=== PATIENT | male | born 1940 | race Caucasian/White ===

== ENCOUNTER 2019-01-23 18:20 | Emergency (ER) | payer MEDICARE, BC ==
[~2019-01-23] VITALS: Ht 167.6 cm; Wt 63.5 kg
[~2019-01-23 18:20] MED LIST: Augmentin 875-1 EACH PO
[2019-01-23 20:15] LABS: BASOPHILS ABSOLUTE AUTO 0.06 K/mm3 (0.00-0.23); BASOPHILS PERCENT AUTO 1 % (0-2); EOSINOPHILS ABSOLUTE AUTO 0.14 K/mm3 (0.00-0.68); EOSINOPHILS PERCENT AUTO 2 % (0-6); Hematocrit 39.4 % (37.0-53.0); Hemoglobin 13.5 g/dL (13.5-17.5); IMMATURE GRAN ABSOLUTE AUTO 0.03 K/mm3 (0.00-0.10); IMMATURE GRAN PERCENT AUTO 0 % (0-1); LYMPHOCYTES ABSOLUTE AUTO 1.53 K/mm3 (0.84-5.20); LYMPHOCYTES PERCENT AUTO 19 % (21-46); MONOCYTES ABSOLUTE AUTO 0.87 K/mm3 (0.16-1.47); MONOCYTES PERCENT AUTO 11 % (4-13); Mean Corpuscular HGB 34.1 pg (26.0-34.0); Mean Corpuscular HGB Conc 34.3 g/dL (31.5-36.5); Mean Corpuscular Volume 100 fL (80-100); Mean Platelet Volume 10.7 fL (9.1-12.4); NEUTROPHILS ABSOLUTE AUTO 5.62 K/mm3 (1.96-9.15); NEUTROPHILS PERCENT AUTO 68 % (41-73); Platelet Count 157 K/mm3 (150-400); RDW Coefficient Variation 12.5 % (11.7-14.2); RDW Standard Deviation 45.7 fL (35.1-46.3); Red Blood Cell Count 3.96 M/mm3 (4.30-5.90); White Blood Cell Count 8.25 K/mm3 (4.00-11.30)
[2019-01-23 20:38] LABS: Alanine Aminotransfer (ALT/SGP 18 U/L (12-78); Albumin, Blood 4.1 g/dL (3.4-5.0); Albumin/Globulin Ratio 1.3 (0.8-1.8); Alk Phos 68 U/L (50-136); Anion Gap 9 mmol/L (6-16); Aspartate Aminotrans (AST/SGOT 18 U/L (12-37); Bilirubin, Total 0.5 mg/dL (0.1-1.0); Blood Urea Nitrogen 13 mg/dL (8-24); Bun/Creatinine Ratio 14.6 (12.0-20.0); CO2, Blood 24 mmol/L (21-32); Calcium, Blood 9.4 mg/dL (8.5-10.1); Chloride, Blood 108 mmol/L (98-108); Creatinine, Blood 0.89 mg/dL (0.60-1.20); Ethanol (Alcohol), Blood, Med 204 mg/dL; Globulin, Blood 3.2 g/dL (2.2-4.0); Glomerular Filtration Rate >60 (60-); Glucose, Blood 103 mg/dL (70-99); Potassium, Blood 3.3 mmol/L (3.5-5.5); Sodium, Blood 141 mmol/L (136-145); Total Protein, Blood 7.3 g/dL (6.4-8.2)
[2019-01-23] MEDS ORDERED: Seroquel25 MG PO (21:34)
== END 2019-01-23 21:56 | disposition home or self-care (01) ==
LOC: ER 18:20
PROVIDERS: Emergency Medicine
DX: R45.6 Violent behavior (principal); F10.10 Alcohol abuse, uncomplicated; Y90.7 Blood alcohol level of 200-239 mg/100 ml; Z88.6 Allergy status to analgesic agent; Z91.013 Allergy to seafood; Z87.891 Personal history of nicotine dependence
CPT/HCPCS: 70450; 71045; 80053; 84443; 84484; 85025; 93005; 93010; 99285-25; G0480

== ENCOUNTER 2019-04-02 18:38 | Observation (INO) | payer MEDICARE, BC ==
[~2019-04-02] VITALS: Ht 167.6 cm; Wt 61.9 kg
[~2019-04-02 18:38] MED LIST changes: +Seroquel25 MG PO
[2019-04-02 19:06] LABS: BASOPHILS ABSOLUTE AUTO 0.07 K/mm3 (0.00-0.23); BASOPHILS PERCENT AUTO 1 % (0-2); EOSINOPHILS ABSOLUTE AUTO 0.26 K/mm3 (0.00-0.68); EOSINOPHILS PERCENT AUTO 3 % (0-6); Hemoglobin 12.5 g/dL (13.5-17.5); IMMATURE GRAN ABSOLUTE AUTO 0.03 K/mm3 (0.00-0.10); IMMATURE GRAN PERCENT AUTO 0 % (0-1); LYMPHOCYTES ABSOLUTE AUTO 2.69 K/mm3 (0.84-5.20); LYMPHOCYTES PERCENT AUTO 34 % (21-46); MONOCYTES ABSOLUTE AUTO 0.96 K/mm3 (0.16-1.47); MONOCYTES PERCENT AUTO 12 % (4-13); Mean Corpuscular HGB 34.1 pg (26.0-34.0); Mean Corpuscular HGB Conc 33.8 g/dL (31.5-36.5); Mean Corpuscular Volume 101 fL (80-100); NEUTROPHILS ABSOLUTE AUTO 4.03 K/mm3 (1.96-9.15); NEUTROPHILS PERCENT AUTO 50 % (41-73); Platelet Count 158 K/mm3 (150-400); RDW Coefficient Variation 12.3 % (11.7-14.2); RDW Standard Deviation 46.2 fL (35.1-46.3); Red Blood Cell Count 3.67 M/mm3 (4.30-5.90); White Blood Cell Count 8.04 K/mm3 (4.00-11.30)
[2019-04-02 19:28] LABS: Alanine Aminotransfer (ALT/SGP 23 U/L (12-78); Albumin, Blood 3.7 g/dL (3.4-5.0); Albumin/Globulin Ratio 1.3 (0.8-1.8); Alk Phos 74 U/L (50-136); Anion Gap 11 mmol/L (6-16); Aspartate Aminotrans (AST/SGOT 19 U/L (12-37); Bilirubin, Total 0.2 mg/dL (0.1-1.0); Blood Urea Nitrogen 17 mg/dL (8-24); Bun/Creatinine Ratio 17.8 (12.0-20.0); CO2, Blood 23 mmol/L (21-32); Calcium, Blood 8.7 mg/dL (8.5-10.1); Chloride, Blood 107 mmol/L (98-108); Creatinine, Blood 0.95 mg/dL (0.60-1.20); Ethanol (Alcohol), Blood, Med 291 mg/dL; Globulin, Blood 2.8 g/dL (2.2-4.0); Glomerular Filtration Rate >60 (60-); Glucose, Blood 93 mg/dL (70-99); Potassium, Blood 3.4 mmol/L (3.5-5.5); Salicylate 2.9 mg/dL (2.8-20.0); Sodium, Blood 141 mmol/L (136-145); Total Protein, Blood 6.5 g/dL (6.4-8.2)
[2019-04-02 19:39] LABS: Acetaminophen, Random <2.0 ug/mL (10.0-30.0)
--- NOTE | 2019-04-03 00:14 | NUR ---
PATIENT IS A NEW ADMIT FROM THE ED. ED NURSE REPORTS PATIENT COMING UP WITH SECURITY WITH ETOH AGGRESSION. PATIENT COMBATIVE IN ED AND RN REPORTS HALDOL IM AND IV GIVEN; IV BENADRYL AND PO ATIVAN GIVEN. PATIENT CALM AND COOPERATIVE AT THIS TIME. FALLING ASLEEP DURING ASSESSMENT. UNABLE TO ANSWER MOST HEALTH HX QUESTIONS. HX DEMENTIA. DOES NOT KNOW WHERE HE IS AT, YEAR, MONTH OR PRESIDENT. ORIENTED TO ROOM AND CALL LIGHT SYSTEM. PATIENT SLEEPING AT THIS TIME.
--- NOTE | 2019-04-03 00:26 | NUR ---
PATIENT GIVEN K-DUR 40 MEQ PO DISSOLVED AND LOVENOX AT THIS TIME.
--- NOTE | 2019-04-03 01:14 | NUR ---
PATIENT STILL SLEEPING. WILL CONTINUE TO MONITOR.
--- NOTE | 2019-04-03 04:26 | NUR ---
PATIENT UP TO BR WITH ONE ASSIST. NO AGGRESSION NOTED. PATIENT UNSTEADY WHEN FIRST STANDING. BACK IN BED AND BED ALARM ACTIVATED. WILL CONTINUE TO MONITOR.
--- NOTE | 2019-04-03 04:44 | NUR ---
PATIENT COOPERATIVE WITH LAB DRAW AND SECOND SET OF VITALS. PATIENT BACK TO RESTING. WILL CONTINUE TO MONITOR.
[2019-04-03 04:50] LABS: Hematocrit 35.6 % (37.0-53.0); Hemoglobin 11.9 g/dL (13.5-17.5); Mean Corpuscular HGB 33.2 pg (26.0-34.0); Mean Corpuscular HGB Conc 33.4 g/dL (31.5-36.5); Mean Corpuscular Volume 99 fL (80-100); Mean Platelet Volume 11.1 fL (9.1-12.4); Platelet Count 143 K/mm3 (150-400); RDW Coefficient Variation 12.5 % (11.7-14.2); RDW Standard Deviation 46.3 fL (35.1-46.3); Red Blood Cell Count 3.58 M/mm3 (4.30-5.90); White Blood Cell Count 6.88 K/mm3 (4.00-11.30)
[2019-04-03 05:16] LABS: Alanine Aminotransfer (ALT/SGP 24 U/L (12-78); Albumin, Blood 3.4 g/dL (3.4-5.0); Albumin/Globulin Ratio 1.3 (0.8-1.8); Alk Phos 60 U/L (50-136); Anion Gap 7 mmol/L (6-16); Aspartate Aminotrans (AST/SGOT 20 U/L (12-37); Bilirubin, Total 0.4 mg/dL (0.1-1.0); Blood Urea Nitrogen 12 mg/dL (8-24); CO2, Blood 26 mmol/L (21-32); Calcium, Blood 8.7 mg/dL (8.5-10.1); Chloride, Blood 113 mmol/L (98-108); Creatinine, Blood 0.86 mg/dL (0.60-1.20); Globulin, Blood 2.6 g/dL (2.2-4.0); Glomerular Filtration Rate >60 (60-); Glucose, Blood 70 mg/dL (70-99); Potassium, Blood 3.6 mmol/L (3.5-5.5); Sodium, Blood 146 mmol/L (136-145)
--- NOTE | 2019-04-03 05:17 | NUR ---
SHIFT SUMMARY PATIENT IS A NEW ADMIT FROM THE ED. AXOX TWO TO SELF AND FAMILY. DOES NOT KNOW FACILITY, DATE, MONTH, YEAR, OR PRESIDENT. PATIENT ARRIVED VIA W/C AND TWO PERSON ASSIST TO BED. PATIENT ARRIVED WITH SECURITY AND THEY STAYED THROUGH ADMIT. PATIENT WAS TIRED FROM MEDICATION IN ED FOR AGRESSION AND AGITATION INCLUDING HALDOL, ATIVAN, AND BENADRYL. LIMITED HEALTH HX OBTAINED. COOPERATIVE WITH CARE SINCE ADMIT. PIV REMAINS INTACT. PO K-DUR 40 MEQ GIVEN PER EMAR X ONE. DENIES PAIN, SOB, AND N/V. VSS/AFEBRILE. COOPERATIVE WITH LAB DRAW AND VITALS. CALL LIGHT IN REACH. BED IN LOWEST POSITION. WILL CONTINUE TO MONITOR UNTIL DAY SHIFT NURSE ASSUMES CARE.
[2019-04-03 10:14] LABS: Source, Urine Clean Catch
[2019-04-03 10:26] LABS: Bilirubin, Urine Neg (Neg); Blood, Urine Neg (Neg); Glucose Qualitative, Urine Neg (Neg); Ketones, Urine Neg (Neg); Leukocyte Esterase, Urine Neg (Neg); Nitrite, Urine Neg (Neg); Protein, Urine Neg (Neg); Specific Gravity, Urine 1.015 (1.003-1.022); Urobilinogen, Urine NORM (Normal)
[2019-04-03 10:27] LABS: Appearance, Urine Clear (Clear); Color, Urine Yellow (P-Yellow)
[2019-04-03 10:38] LABS: U Amphetamine Screen Not Detected; U Barbituate Screen Not Detected; U Benzodiazapine Screen DETECTED; U Buprenorphine Screen Not Detected; U Cannabinoids Screen Not Detected; U Cocaine Screen Not Detected; U Methadone Screen Not Detected; U Methamphetamine Screen Not Detected; U Opiates Screen Not Detected; U Oxycodone Screen Not Detected; U Phencyclidine Screen Not Detected; U Propoxyphene Screen Not Detected
--- NOTE | 2019-04-03 16:36 | NUR ---
PATIENT HAS BEEN RESTING MOST OF THE SHIFT. HE STATED HE WANTED TO GO HOME AND TRIED TO GET DRESSED AFTER RIPPING OUT HIS IV. NURSE EXPLAINED TO HIM WHY HE WAS AT THE HOSPITAL AND WHY HE NEEDED TO STAY. HE GOT AGITATED BUT SERCURITY WAS NOT NEEDED. HE WAS ABLE TO RETURN TO BASELINE QUICKLY. HE IS HIGHLY CONFUSED AND FORGETS WHERE HE IS AND WHY. WAS NOTIFIED OF HIS CONDITION AND STATED SHE DID NOT WANT HIM BACK HOME . SS TO BE NOTIFIED FOR DETENTION PLACEMENT ON FRIDAY. MEDS CHANGED PT DOES HAVE HISTORY OF [place]. AT THIS TIME HE IS SITTING ON THE EDGE OF THE BED QUIETLY.
--- NOTE | 2019-04-03 21:01 | NUR ---
PATIENT INDEPENDENT AND WALKING IN ROOM AND OUT INTO HALLWAY AND BACK INTO ROOM. CIWA= 3 FOR ORIENTATION. PATIENT COOPERATIVE WITH CARE AT THIS TIME. WILL CONTINUE TO MONITOR.
--- NOTE | 2019-04-03 22:53 | NUR ---
PATIENT BACK INTO BED LAST HOUR AND SLEEPING.
--- NOTE | 2019-04-04 03:18 | NUR ---
SHIFT SUMMARY PATIENT CALM AND COOPERATIVE AT THIS TIME. WALKING IN HORNE AND ROOM INDEPENDENTLY. DENIES PAIN, SOB, AND N/V. CIWA= 3 FOR ORIENTATION. VSS/AFEBRILE. NO MEDICATIONS THIS SHIFT. NO IV ACCESS. PUT SELF BACK INTO BED FOR EVENING. DID NOT WANT TO WATCH TV. CALL LIGHT IN REACH. BED IN LOWEST POSITION. WILL CONTINUE TO MONITOR UNTIL DAY SHIFT NURSE ASSUMES CARE.
[2019-04-04 05:58] LABS: Albumin, Blood 3.4 g/dL (3.4-5.0); Anion Gap 5 mmol/L (6-16); Blood Urea Nitrogen 12 mg/dL (8-24); Bun/Creatinine Ratio 14.7 (12.0-20.0); CO2, Blood 28 mmol/L (21-32); Calcium, Blood 9.2 mg/dL (8.5-10.1); Chloride, Blood 110 mmol/L (98-108); Creatinine, Blood 0.82 mg/dL (0.60-1.20); Glomerular Filtration Rate >60 (60-); Glucose, Blood 86 mg/dL (70-99); Phosphorus, Blood 3.1 mg/dL (2.5-4.9); Potassium, Blood 3.7 mmol/L (3.5-5.5); Sodium, Blood 143 mmol/L (136-145)
--- NOTE | 2019-04-04 15:28 | NUR ---
PATIENT CONTINUES TO BE CONFUSED AND/OR FORGETFUL. HE HAS NOT HAD ANY EPISODES OF AGGRESSION THIS SHIFT AND REMAINS REDIRECTABLE AND COOPERATIVE WITH STAFF. HE HAS PUT HIS STREET CLOTHES ON WHICH THIS NURSE HAS ALLOWED. HE IS INDEPENENT IN HIS ROOM AND OFTEN WILL JUST SIT ON HIS BED QUIETLY . IS NEEDING SS TO HELP WITH PLACEMENT HE CANNOT RETURN HOME.
--- NOTE | 2019-04-04 20:59 | NUR ---
ROOM MONITOR REPORTS PATIENT ON TOP OF BED. PATIENT ON SIDE OF BED WHEN NURSE ENTERED CHANGING CLOTHES.
--- NOTE | 2019-04-04 21:00 | NUR ---
PATIENT ACTIVATED CODE BLUE LEVERAGE IN ROOM. PATIENT STANDING IN FRONT OF CODE BLUE LEVER AND ROOM MONITOR/SCREEN. RESEARCH MANAGEMENT ASSOCIATE CANCELLED CODE BLUE. PATIENT ORIENTED BACK INTO BED. WILL CONTINUE TO MONITOR.
--- NOTE | 2019-04-05 02:47 | NUR ---
PATIENT UP LAST THREE HOURS UNABLE TO SLEEP. WANDERING HALLS AND IN/OUT OF ROOM. WILL CONTINUE TO MONITOR.
--- NOTE | 2019-04-05 03:59 | NUR ---
SHIFT SUMMARY PATIENT HAD NO ACUTE CHANGES OBSERVED THIS SHIFT. AXOX ONE WITH CONFUSION. PATIENT IN STREET CLOTHES MOST OF THE SHIFT. WENT TO BED AND GOT UP STAYING UP PAST O4:00. INDEPENDENT IN ROOM AND HORNE. NOTE, WALKED OUT OF SCU UNIT BEFORE EXIT DOOR SHUT AND TURNED AROUND AND CAME BACK IN. VSS/AFEBRILE. DENIES PAIN, SOB, AND N/V. NO AGRESSION OBSERVED THIS SHIFT. CIWA= 3 FOR ORIENTATION. PATIENT OPENED ONE CABINET DOOR AND CLOSED IN HALLWAY. PATIENT ORIENTED TO TIME AND PLACE BUT STILL NOT GOING TO BED. CALL LIGHT IN REACH. BED IN LOWEST POSITION. WILL CONTINUE TO MONITOR UNTIL DAY SHIFT NURSE ASSUMES CARE.
--- NOTE | 2019-04-05 04:56 | NUR ---
PATIENT INCREASE AGITATION. PATIENT WANTING TO LEAVE. CHARGE NURSE NOTIFIED. PATIENT REDIRECTED BACK INTO ROOM BUT STILL AGITATED. PATIENT HAS NOT SLEPT LAST FIVE HOURS AND UNWILLING TO GO BACK TO BED. WILL CONTINUE TO MONITOR.
--- NOTE | 2019-04-05 05:24 | NUR ---
ATIVAN 1 MG PO GIVEN FOR AGITATION. PATIENT IN ROOM. WARE CARRIER NOTIFED TO WATCH CLOSELY. WILL CONTINUE TO MONITOR.
--- NOTE | 2019-04-05 05:52 | NUR ---
PATIENT SITTING IN CHAIR IN ROOM LAST 20 MINUTES. WILL CONTINUE TO MONITOR.
--- NOTE | 2019-04-05 12:17 | NUR ---
PT UP DRESSED IN STREET CLOTHES, WANDERING IN HORNE @ ONSET OF SHIFT. CONFUSED, DISORIENTED HOWEVER CALM & REDIRECTABLE, PLEASANT SMILING. APPROX 1200 PT CONTINUES UP, INCREASED WANDERING, GOING INTO OTHER PT ROOMS, ATTEMPTING TO REMOVE ITEMS. DIFFICULT TO REDIRECT, BECOMES AGITATED/DEFENSIVE. PRN HALDOL 5MG GIVEN. REQUIRES CLOSE MX @ THIS TIME.
--- NOTE | 2019-04-05 16:41 | NUR ---
SUMMARY PT HAS BEEN UP AMBULATING IN MARIELA & HORNE T/O DAY, DRESSED IN STREET CLOTHES, DECLINES TO CHANGE INTO GOWN OR PJ. HE IS CONFUSED, ORIENTED TO SELF ONLY. HE HAS ATTEMPTED TO WANDER INTO OTHER PT ROOMS, REARRANGE FURNITURE ITEMS, ETC. REQUIRES CLOSE MX & FREQUENT REDIRECT TO AVOID RESTRAINT. HE IS GENERALLY PLEASANT HOWEVER AROUND BECAME AGITATED, SOMEWHAT THREATENING TOWARDS STAFF WITH REDIRECTION, PRN HALDOL 5MG GIVEN. HE HAS CALMED, MORE REDIRECTABLE THIS AFTERNOON. NOC RN REPORT POOR SLEEP LAST NITE, WE HAVE ENCOURAGED HIM TO NAP HOWEVER HE WILL NOT LAY DOWN, APPEARS FATIGUED HOWEVER DENIES. NO S/S ETOH W/D. BP 153/91, HR 111. [facility] STATE AWAITING PSYCHE CONSULT FOR PLACEMENT.
--- NOTE | 2019-04-05 19:45 | NUR ---
INCREASED WANDERING INTO OTHER PT ROOMS, MOVING FURNITURE ETC. BECOME NONREDIRECTABLE, AGITATED, THREATENING. ATTEMPTS TO CALM/REASSURE UNSUCCESSFUL. DR GUZMAN NOTIFIED, STATE TO ATTEMPT ORAL ATIVAN, HALDOL HOWEVER PT REFUSING ORAL @ THIS TIME. DR SUAREZ TO ATTEMPT TO REDIRECT PT HOWEVER UNSUCCESSFUL. ACCOUNT EXECUTIVE METALWORKING, NURSING SUPVR, SECURITY NOTIFIED. PT INCREASINGLY AGITATED, WILL NOT FOLLOW DIRECTION. DR GUZMAN ORDER IM ATIVAN 1MG, GIVEN. PT REQUIRE PHYSICAL RESTRAINT TO GIVE MEDICATION. DR GUZMAN STATE IF INEFFECTIVE MAY USE SOFT RESTRAINTS. PT CONTINUES COMBATIVE, NURSE SUPVR STATE TO PLACE RESTRAINT, SOFT WRIST, ANKLE & COY VEST PLACED. NOC RN INFORMED OF SITUATION, BEDSIDE REPORT PROVIDED.
--- NOTE | 2019-04-06 05:30 | NUR ---
SHIFT SUMMARY PT SLEPT OFF AND ON. INCONTINENT OF A LARGE AMOUNT OF URINE. PT COOPERATIVE WITH CARE. 4 POINT RESTRAINT RELEASED AND COY VEST LEFT IN PLACE. PT TRYING TO GET UP TO BATHROOM, COY UNTIED AND PT TO BATHROOM, UNSTEADY ON FEET AND BECOMES AGITATED WITH STAFF. BACK TO BED COY LEFT IN PLACE FOR FALL PRECAUTION DUE TO UNSTEADY GAIT, CONFUSION, AND BEING IMPULSIVE. WILL CONTINUE TO MONITOR.
--- NOTE | 2019-04-06 10:21 | NUR ---
PT IN VEST RESTRAINT @ ONSET OF SHIFT. HE IS DROWSY/SLEEPING, AROUSES EASILY. SOMEWHAT IRRITABLE/DEFENSIVE. CONFUSED, ORIENTED TO SELF ONLY--HX DEMENTIA. HE IS CALM, FOLLOWS SIMPLE DIRECTION @ THIS TIME. DR GUZMAN IN TO SEE HIM, DECISION TO D/C RESTRAINT @ THIS TIME. PT REFUSE AM MEDS, STATE OK TO HOLD, STATE ENCOURAGE SLEEP & TRY TO KEEP PT OUT OF RESTRAINTS IF POSSIBLE.
--- NOTE | 2019-04-06 18:21 | NUR ---
SUMMARY PT WAS IN COY RESTRAINT @ ONSET OF SHIFT, SLEEPING. WHEN AROUSED HE WAS CALM, FOLLOWING DIRECTION, COOPERATIVE. RESTRAINT D/C'D. DR GUZMAN STATE TO GIVE 1600 SEROQUEL EARLY @ 1400. HX DEMENTIA, HE CONTINUES VERY CONFUSED, ORIENTED TO SELF ONLY. HE DEVELOPED A TRUST/ADDISON WITH TONY MCBRIDE. SHE SPENT MUCH 1:1 TIME WITH PT, PROVIDING DISTRACTION & REASSURANCE. DR CHAWLA IN TO SEE PT THIS AFTERNOON FOR PSYCHE CONSULT, ADJUST MEDICATIONS, PROVIDE GUARDIANSHIP PAPERS. LATE AFTERNOON PT BEHAVIOR BECOME AGITATED, FIXATED ON LEAVING HOSP, BECOME NONREDIRECTABLE & HOSTILE/THREATENING. ORAL SEROQUEL 25MG GIVEN HOWEVER INEFFECTIVE. SWAGING MACHINE OPERATOR NOTIFIED, ATTEMPTS TO DE-ESCALATE PT UNSUCCESSFUL. REQUIRE SECURITY TO GIVE PT PRN IM ZYPREXA PER DR CHAWLA ORDERS. REQUIRE PT TO BE PLACED IN SOFT WRIST & VEST RESTRAINTS, DR GUZMAN NOTIFIED, PROVIDE ORDERS.
--- NOTE | 2019-04-07 05:53 | NUR ---
SHIFT SUMMARY PT SLEPT OFF AND ON DURING THE NIGHT, SWINGING LEGS OVER BED T/O NIGHT ATTEMPTING TO GET UP OUT OF BED. PT CONFUSED. PT OUT OF WRIST RESTRAINTS AT THIS TIME, COY VEST REMAINS ON DUE TO IMPULSIVENESS AND SWINGING LEGS OUT OF BED. NO ACUTE EVENTS NOTED DURING THE NIGHT, WILL CONTINUE TO MONITOR.
--- NOTE | 2019-04-07 19:31 | NUR ---
SHIFT SUMMARY: NO ACUTE CHANGES TO REPORT THIS SHIFT. PT HX DEMENTIA; ORIENTED TO SELF; IRRITABLE; COOPERATIVE WITH CARE. SEROQUEL PRN FOR AGITATION; MEDICATED THIS AFTERNOON-PATIENT ABLE TO BE TAKEN OUT OF RESTRAINTS; PT REMAINS COOPERATIVE WITH CARE. AWAITING PLACEMENT. REPORT GIVEN TO ONCOMING RN.
--- NOTE | 2019-04-08 07:20 | NUR ---
NOC SHIFT SUMMARY PT LIKES TO WANDER AROUND THE HALLWAY. WAS PLEASANTLY CONFUSED AT BEGINING OF SHIFT BUT THEN BECAME PROGRESIVELY MORE AGITATED THE EVENING WORE ON. PRN SEROQUEL AND ZYPREXA DID NO HELP AND IT WAS NECESSARY TO PLACE PT IN WRIST RESTRAINTS. ORDER RECIEVED FROM HOSPITALIST AT 2255. PT TOLERATED THE RESTRAINTS WELL BUT REMAINED RESTLESS THROUGH THE NIGHT. PT KNOWN TO SUND. VSS. APPEARS IN NO ACUTE DISTRESS. REPORT TO ONCOMING RN.
--- NOTE | 2019-04-08 16:53 | NUR ---
PATIENT WAS REMOVED FROM RESTRAINTS HE WAS CALM AND COOPERATIVE WITH STAFF. HE HAS BEEN BUSY IN HIS ROOM PACKING UP BELONGINGS AND GETTING HIS STREET CLOTHES BACK ON. HE WILL WANDER THE HORNE AND AT THIS TIME (1700) IS GETTING ANXIOUS BUT IS STILL REDIRECTABLE. WE WILL AVOID APPLICATION OF RESTAINTS LONG PATIENT REMAINS SAFE AND NON THREATENING TO STAFF.
--- NOTE | 2019-04-09 07:34 | NUR ---
NOC SHIFT SUMMARY PT WAS PLEASANT AND COOPERATIVE AT BIGINING OF SHIFT BUT AROUND 2029 BEGAN AND BEGAME INCREASINGLY AGITATED. IT BECAME NECESSARY TO RESTRAINE HIM WITH VEST AND WRIST CUFFS. RECIEVED ORDER FROM HOSPITALIST. PT TOLERATED RESTRAINTS WELL. VSS. HE REMAINS CONFUSED. REPORT TO ONCOING RN.
--- NOTE | 2019-04-09 09:03 | NUR ---
0900 PATIENT IS SLEEPING AND CALM AT THIS TIME. HE IS NONVIOLENT IN THE MORNINGS AND DURING THE DAY SO RESTRAINTS WILL BE REMOVED AND PATIENT MONTIORED. WILL BE REAPPLIED NEEDED.
--- NOTE | 2019-04-09 11:03 | NUR ---
PATIENT CONTINUES TO SLEEP. MEDS HELD UNTIL PATIENT IS AWAKE. NO DISTRESS NOTED.
--- NOTE | 2019-04-09 14:16 | NUR ---
PATIENT SITTING QUIETLY IN HIS CHAIR. HE HAS HAD NO OUTBURSTS AND REMAINS COMPLIANT WITH CARES. PATIENT WILL WALK AROUND ROOM EITHER PACKING HIS BELONGINGS OR MAKING HIS BED. HE IS NOT SHOWING ANY SIGNS OF AGGITATION OR DISTRESS.
--- NOTE | 2019-04-09 17:55 | NUR ---
1800 PATIENT IS BECOMING MORE ANXIOUS TO "LEAVE" . HE HAS PACKED HIS BAG AND IS LOOKING FOR HIS "RIDE" . HE WONT EAT HIS DINNER AND IS STARTING TO WANDER INTO OTHER ROOMS. THIS NURSE FEELS THAT RESTRAINING HIM AT THIS TIME WOULD CREATE MORE STRESS FOR THE PATIENT . HE IS STILL REDIRECTABLE AT THIS TIME BUT IS SLOWLY BECOMING MORE AGGITATED AND IMPATIENT WITH NOT LEAVING HE HAS NOW IMAGINED THAT HE SHOULD BE . WILL CONTINUE TO WATCH PATIENT AND REDIRECT NEEDED.
--- NOTE | 2019-04-09 18:04 | NUR ---
PATIENT TRANFERRED FROM 306. PATIENT IS ALERT AND ORIENTED TO PLACE AND SELF. HE IS OFTEN CONFUSED BUT REDIRECTABLE . HE IS ABLE TO TRANSFER TO CHAIR WITH STANDBY AND FWW. HE CALLS APPROPRIATLY AND USES THE URINAL WHEN NEEDED.
--- NOTE | 2019-04-09 23:43 | NUR ---
22:00 SPOKE WITH JIG BORING MACHINE SET UP OPERATOR TAE REGARDING PATIENT RISK TO SELF, FALL RISK GIVEN DOSAGE OF MEDS ETC. RECEIVED ORDER FOR COY AND SOFT WRIST RESTRAINTS
--- NOTE | 2019-04-10 17:28 | NUR ---
SHIFT SUMMARY NO ACUTE CHANGES. PATIENT DENEIS PAIN, NAUSEA, AND SHORTNESS OF BREATH. PATIENT INCREASINGLY AGITATED IN THE AFTERNOON AND CONCERNED ABOUT HIS HOME AND . PRN SEROQUEL GIVEN. PATIENT ENCOURAGED TO SIT IN HALLWAY AND CHAT WITH STAFF. THIS SEEMED TO HELP REDIRECT THE PATIENT. PATIENT INDEPENDENT IN THE ROOM AND HALLWAY. EITHER STAFF OR [employer] MONITORS SUPERVISING PATIENT.
--- NOTE | 2019-04-11 05:24 | NUR ---
pATIENT HAD A ROUGH NIGHT BECOMING AT ONE POINT HIGHLY AGITATED AND HAD TO BE RESTRAINED 4 POINTS AND COY VEST. HE VOIDED WELL THIS SHIFT AND SEEMS IN BETTER SPIRITS THIS MORNING SO WE HAVE RELEASED THE RESTRAINTS AND WILL SEE HOW HE DOES.
--- NOTE | 2019-04-11 18:37 | NUR ---
SHIFT SUMMARY PATIENT INCREASINGLY AGITATED DAY WENT ON. PATIENT MADE SEVERAL ATTEMPTS TO EXIT THE SCU AND HAD TO BE PHYSICALLY BLOCKED FROM THE DOORS. PATIENT CURSING AND THREATENING STAFF. PATIENT WAS SOMETIMES REDIRECTABLE. PATIENT BEGAN SWINGING AT STAFF AND SECURITY WAS CALLED FOR ASSISTANCE. PATIENT IN COY AND [address] CALERO CALLED, ORDERS FOR ONE TIME IM GEODON GIVEN. PATIENT BECAME SOMEWHAT CALMED BUT CONTINUES TO PULL AT RESTRAINTS. ANKLE RESTARINTS REMOVED. DR. CHAWLA CALLED AND GAVE NEW ORDERS FOR ATIVAN, BENADRYL, AND HALDOL IM. BEDTIME SEROQUEL DOSE INCREASED. DENIES PAIN, NAUSEA, AND SHORTNESS OF BREATH.
--- NOTE | 2019-04-12 07:17 | NUR ---
PATIENT BECAME HIGHLY AGITATED AFTER RECIEVING HIS BEDTIME DOSE OF SEROQUEL. HELD ALL FURTHER MEDS AND PATIENT SEEMS CALMER THIS MORNING. PASSED REPORT TO THE DAY NURSE
--- NOTE | 2019-04-12 18:19 | NUR ---
SHIFT SUMMARY PATIENT SLEPT UNTIL ALMOST 11 TODAY. PATIENT UP IN ROOM READING MOST OF SHIFT. PATIENT BECOMING INCREASINGLY AGITATED AROUND DINNER TIME. PATIENT DENIES PAIN, NAUSEA, AND SHORTNESS OF BREATH. PATIENT'S SON STOPPED BY TO CHECK ON HIM BUT DID NOT SEE PATIENT HE WAS CONCERNED IT WOULD INCREASE HIS AGITATION. SECURITY CALLED FOR ASSISTANCE WITH GIVING PATIENT INJECTION AND PUTTING ON COY AT SHIFT CHANGE. CALL LIGHT IN REACH.
--- NOTE | 2019-04-13 04:21 | NUR ---
SHIFT SUMMRY ALERT TO SELF, FOLLOWING SOME COMMANDS. NO C/O PAIN/DISCOMFORT. MEDICATED PRIOR TO HORSE BREEDER. APPEARED AGITATED AND PULLING AT RESTRAINTS; TRYING TO EXIT BED. RE-ASSURED THAT HE WAS GIVEN MEDICATIONS TO HELP DECREASE AGITATION AND GENTLY ASKED THAT HE LIE BACK DOWN AND KICK UP HIS LEGS. SHORTLY AFTER RE-DIRECTION PATIENT APPEARED RESTING. UP X1 DURING NIGHT FOR ATTENDS CHANGE; NOTED UNSTEADY GAIT. NO ACUTE CHANGES OVERNIGHT. BED REAMINED IN LOWEST POSITION; ALARM ON. CALL LIGHT WITHIN REACH. WCTM. REPORT TO ONCOMING RN.
--- NOTE | 2019-04-13 18:02 | NUR ---
SHIFT SUMMARY- PT SLEPT IN UNTIL 11AM THIS AM. PT AXO TO SELF. PT PLEASANTLY CONFUSED THIS AFTERNOON. REMOVED WRIST RESTRAINTS AT LUNCH TIME. PT BECAME AGITATED THIS PM. PT UNTIED COY AND PER PUNCHING MACHINE OPERATOR, BREANA, PT "SLIDE ONTO HIS KNEES FROM BED." PT PLACED BACK IN BED. DR. CALERO SAID OK TO RENEW COY AND REORDER WRIST RESTRAINTS. MEDS GIVEN PER EMAR. DENIES PAIN. DENIES SOB. RESP E/U ON RA. DENIES N/V. SPOKE WITH REYNOLD FROM [employer] ON THE PHONE TODAY. REYNOLD REPORTS SOMEONE WILL BE IN TO EVALUATE PT ON FRIDAY FOR BEHAVIORAL UNIT. PT SITTING UP IN BED PULLING ON RESTRAINTS THIS PM. BED ALARM ON. CALL LIGHT IN REACH. NO OTHER SIGNIFICANT CHANGES THIS SHIFT.
--- NOTE | 2019-04-13 20:23 | NUR ---
Day RN had written that DR Crockett had ok domingo and bilat wrist restraints and she forgot to renew order. Paged hospitalist to get order renewed as PT is attempting repeatedly to climb out of bed. Await response.
--- NOTE | 2019-04-14 04:05 | NUR ---
SHIF SUMMARY PT WAS AGITATED AT THE BEGINNING OF THE SHIFT, REPEATEDLY TRYING TO GET OUT OF BED DESPITE THE COY VEST. PT WAS GIVEN HIS NIGHTTIME SEROQUEL AND HIS AGITATION DECREASED. PT RESTED MOST OF THE NIGHT. BARRIER CREAM AND POWDER APPLIED TO PT'S PERINEAL AREA TO PREVENT SKIN BREAKDOWN. VSS. NO FURTHER COMPLAINTS. WILL CONTINUE TO MONITOR.
--- NOTE | 2019-04-14 06:12 | NUR ---
PT continues to need vest domingo and bilat wrist restraints to prevent falls and injury. HE has very poor oral intake. supplement ensure x one 50% taken with cues and assist. Confused, no agression noted. Incontient of urine x 2. Bladder scanned x 1 for 250 ml of retained urine. Skin dry fragile with scattered scabs. Skin care given. Restraint monitoring per protocol.
--- NOTE | 2019-04-14 12:05 | NUR ---
PT COOPERATIVE WITH CARE THIS AM ONCE HE WOKE UP. PT A/O TO PERSON AND CITY. PT UP AND AMBULATED TO BATHROOM WITH SBA THEN BACK TO BED. PT SITTING UP WATCHING LUNCH AT THIS TIME. COY PEDERSON D/C'D AT THIS TIME.
--- NOTE | 2019-04-14 16:19 | NUR ---
SHIFT SUMMARY- PT A/O TO PERSON AND CITY. PT HAS BEEN COOPERATIVE WITH CARE AND TAKING MEDICATIONS TODAY. PT HAS SLEPT ON AND OFF. PT UP TO BATHROOM WITH SBA, UNSTEADY GAIT. PT INCONT/CONT OF URINE. BM TODAY. LS CLEAR, ON RA. HRR. RESTRAINTS DC'D. PT AWAITING PLACEMENT. NO OTHER ACUTE CHANGES THIS SHIFT.
--- NOTE | 2019-04-15 05:41 | NUR ---
SHIFT SUMMARY: 78 Y/O MALE RESTED COMFORTABLY ALL SHIFT. PT HAD NO BEHAVIOR ISSUES TONIGHT. PT TOOK ALL MEDICATIONS, DRINKING FLUIDS, DENIES PAIN OR NAUSEA, ALERT TO PERSON ONLY. PTS BED ALARM APPLIED, BED LOW POSITION, CALL LIGHT AT SIDE.
--- NOTE | 2019-04-15 17:09 | NUR ---
SHIFT SUMMARY- PT A/O TO SELF ONLY. PT UP AMBULATING IN ROOM AND HALLS. DENIES ANY COMPLAINTS. PT HAS BEEN PLEASANT AND COOPERATIVE T/O THE DAY BUT VERY CONFUSED. LS CLEAR, ON RA. HRR. TACHY AT TIMES WHEN HE GETS WORKED UP. NO OTHER ACUTE CHANGES THIS SHIFT. PT AWAITING PLACEMENT.
--- NOTE | 2019-04-15 20:18 | NUR ---
PT ALERT TO PERSON AND REQUIRES ASSISTANCE WITH VERY SIMPLE ADL TASKS TO INCLUDE INSTRUCTING PATIENT HOW TO TAKE PILLS AND DRINK WATER FROM [place]
--- NOTE | 2019-04-16 04:21 | NUR ---
SHIFT SUMMARY: 78 Y/O MALE SLEPT 1/2 THE SHIFT AFTER WANDERING AROUND IN ROOM AND HALLWAY. PT ALERT TO PERSON ONLY, REQUIRES FREQUENT REDIRECTION WITH ALL ADLS AND SIMPLE TASKS TO INCLUDE ASSISTING WITH DRINKING WATER. PT WALKING SLOW STEPS AND SHUFFLE WHEN UP AMBULATING. ALL SPEECH GARBLED. PT DENIES PAIN OR NAUSEA. PTS BED LOW POSITION, CALL LIGHT AT SIDE.
--- NOTE | 2019-04-16 17:34 | NUR ---
SHIFT SUMMARY- PT HAS HAD NO ACUTE CHANGES T/O THE SHIFT. HE BECAME MORE CONFUSED AT THE END OF THE DAY AND BEGAN FOLLOWING STAFF ARROUND AND WANDERING INTO ROOMS, PT WAS EASILY REDIRECTABLE AND HAS HAD A STAFF MEMBER PRESENT WITH HIM FOR THE PAST 2 HOURS TO KEEP HIM CALM AND HIS CONFUSION FROM BECOMING ANXIETY. PT IS ALERT TO SELF, BUT CAN TELL YOU HIS PORT LIONS NOT HIS DATE. PT IS INDEPENDENT IN THE ROOM AND THE HORNE, DENIES ANY PAIN.
--- NOTE | 2019-04-16 21:25 | NUR ---
2000 PT UP AMBULATING AROUND IN HALLS IN SPECIAL [facility]ARE UNIT, ALERT PERSON ONLY AND REQUIRES FREQUENT REDIRECTION WITH ALL ADLS/IADLS.
--- NOTE | 2019-04-17 04:17 | NUR ---
SHIFT SUMMARY: 78 Y/O MALE HAD RESTLESS EVENING AT TIMES WITH PATIENT REQUIRING FREQUENT REDIRECTION/REORIENTATION WITH SIMPLE TASKS TO INCLUDE DRESSING SELF. PT IS ALERT OF PERSON ONLY WITH DISORGANIZED THOUGHT PROCESS, SPEECH GARBLED. PT DENIES PAIN OR NASUEA. PTS BED LOW POSITION, CALL LIGHT AT SIDE.
--- NOTE | 2019-04-17 18:52 | NUR ---
SHIFT SUMMARY- PT PLEASENTLY CONFUSED THIS MORNING, BEGINNING TO THIS EVENING, NOT AGRESSIVE, REDIRECTABLE, HOWEVER MORE ACTIVE AND DEFINATELY MORE CONFUSED SPEAKING IN NONSENSICAL LANGUAGE. PT INDEPENDENT IN THE HALLS AND FREQUENTLY WAS 1:1 WITH A STAFF MEMBER AFTER ABOUT 4PM. PT HAS NO IV ACCESS.
--- NOTE | 2019-04-18 06:30 | NUR ---
04/18/19 0615 CONTINUES TO SLEEP WELL AT PRESENT. PT HAD BEEN UP WANDERING UNTIL BENEDRYL GIVEN AT 0120. HAS BEEN ONLY ALERT TO SELF THIS SHIFT. HELD VITALS THIS AM PT NEEDED ADEQUATE REST/SLEEP. SELF WANDERS IN SCU HORNE WITH LOCKED DOORS FOR SAFETY.
--- NOTE | 2019-04-18 07:47 | NUR ---
ASSUMED CARE OF PT- RECIEVED REPORT FROM NIGHT RN YONATAN. PER REPORT PT INAPPROPRIATLY WANDERING INTO OTHER PT ROOMS, BECAME AN ISSUE WHEN PT BECAME NON-REDIRECTABLE NAD AGGITATION INCREASED WITH ATTEMPTS TO REDIRECT. PT RECIEVED BENSTEVENRYL. HE IS CURRENTLY SLEEPING, BUT WAKES TO STAFF, AND IS PLEASENT, GOES RIGHT BACK TO SLEEP. PT INDEPENDENT NORMALLY.
--- NOTE | 2019-04-18 18:08 | NUR ---
SHIFT SUMMARY- PT ALERT AND COMPLETELY DISORIENTED. CALLED DR CALERO AND REQUESTED MEDICATION FOR PT TO HELP WITH ANXIETY, RECIEVED ORDER FOR PO ATIVAN 0.5MG. OT DOSE GIVEN. WITH NO OBVIOUS EFFECT. PT IS WANDERING IN THE HALLS BOUNCING FROM ONE STAFF MEMBER TO ANOTHER ASKING QUESTIONS IN WORD SALAD FORMAT. AT ONE POINT HE CONVEYED THAT HE WAS GETTING ANGRY, BUT STAFF REDIRECTED. PT IS BEING REMINDED NOT TO ENTER PT ROOMS AND HE STOPS AT THE DOORWAY. PT STILL SMILING AND LAUGHING WHEN STAFF TALK TO HIM. HE DOES NOT APPEAR TO BE AGRESSIVE AT THIS TIME. WILL CTM.
--- NOTE | 2019-04-18 19:33 | NUR ---
04/18/191919 PT WANDERS AND FOLLOWS STAFF INTO OTHER PT ROOMS. CHAIR SAT IN HALLS AND GIVEN NEWSPAPER TO READ. DRINKING APPLE JUICE AND EATING CRACKERS.
--- NOTE | 2019-04-18 22:28 | NUR ---
04/18/19 2210 PT UP WALKING TO HORNE OS SCU. TRYING TO GO INTO OTHER PT ROOMS. HE BECOMES AGITATED WHEN STAFF DIVERT HIM BACK TO HIS ROOM. RN WILL GIVE ADDITIONAL ANTI-ANXIETY MEDS. SEE MAR.
--- NOTE | 2019-04-18 22:49 | NUR ---
04/18/192234 PT BECAME COMBATIVE WHEN ADMINISTERING IM MEDS. AFTERWARDS HE C/O GENERAL CHEST DISCOMFORT. ASSISTED TO BED AND VITALS TAKEN. VITALS STABLE AND PT FELL ASLEEP. BED ALARM ON. LIGHTS TURNED DOWN AND TV TURNED OFF.
--- NOTE | 2019-04-19 05:29 | NUR ---
04/19/19 0515 BED ALARM SOUNDING. PT TRYING TO GET OUT OF BED TO "PEE". ASSISTED TO BATHROOM FOR QS VOIDING. DAYANA-CARE GIVEN AND ASSISTED BACK TO BED. FELL ASLEEP AND BED ALARM TURNED "ON".
--- NOTE | 2019-04-19 14:42 | NUR ---
ALERT TO SELF. GOOD APPETITE. UNLABORED RESPIRATIONS. PLEASANT. COOPERATIVE. AMBULATORY WITH A SHUFFLING TYPE GAIT IN ROOM. UP IN CHAIR MOST OF DAY. NO ACUTE CHANGES. TAKES MEDS WHOLE WITH WATER. ABLE TO FEED SELF WITHOUT DIFFICULTY. WCTM.
--- NOTE | 2019-04-19 16:30 | NUR ---
ASKED ABOUT GIVING ANXIETY MEDS P.O. OR IM BRAINER HAD HARD TIME W/GIVING SHOTS. PER IM MEDS CANCELLED AND P.O. MEDS ADDED TO EMAR.
--- NOTE | 2019-04-19 18:41 | NUR ---
ALERT TO SELF. GIVEN; ATIVAN, HALDOL AND BENADRYL P.O. AROUND [id number]. PATIENT WANDERING HALLWAY AND TRYING TO GET OUT SPECIAL CARE UNIT. WORD CHENG. RELIEF SALESPERSON TRYING TO KEEP PATIENT OCCUPIED AND DOING A VERY GOOD JOB W/PATIENT FOLDING LINEN FOR HER. WCTM.
--- NOTE | 2019-04-19 18:50 | NUR ---
ADVISED PATIENT GIVEN; ATIVAN .5 MG P.O., BENADRYL 25 MG P.O. AND HALDOL 2.5 MG PO WITH NO EFFECT. ORDER ATIVAN 0.5 MG P.O. NOW AND HALDOL 2.5 MG P.O NOW.
--- NOTE | 2019-04-20 02:36 | NUR ---
04/20/19 0120 BED ALARM SOUNDING OFF. PT TRYING TO GET UP AND WANTING TO URINATE. ASSISTED TO BATHROOM WITH HELP OF LIFE SK[employer] EDUCATOR AND RN. VOIDED QS. ASSISTED BACK TO BED AND FELL ASLEEP AGAIN.
--- NOTE | 2019-04-20 06:34 | NUR ---
04/20/19 0600 UP SEVERAL TIMES TO VOID. AGITATED AT TIMES WITH STAFF ASSISTING HIM TO THE BATHROOM WITH RAISING HIS FISTS BUT RE-DIRECTABLE. VITALS STABLE.
--- NOTE | 2019-04-20 17:05 | NUR ---
ALERT TO SELF. COOPERATIVE. WANDERING IN HALLWAY, BUT NOT TRYING TO GET OUT AT THIS TIME. PLEASANT. REDIRECTABLE. UNLABORED RESPIRATIONS. STEADY GAIT. NO C/O PAIN. AWAITING PLACEMENT. WCTM.
--- NOTE | 2019-04-21 04:19 | NUR ---
SHIFT SUMMARY PT WAS CALM AND COOPERATIVE DURING THE SHIFT AND WAS EASILY REDIRECTABLE. NO EPISODES OF AGITATION OCCURRED. PT CONTINUES TO BE CONFUSED AND HALLUCINATED THAT THE SPOTS ON THE BATHROOM FLOOR WERE ANTS. PT REMAINED SAFE DURING THE SHIFT. NO COMPLAINTS OF PAIN. CALL SHEPARD IN REACH, BED IN LOW POSITION. WILL CONTINUE TO MONITOR PT.
--- NOTE | 2019-04-21 14:45 | NUR ---
PATIENT ALERT TO SELF. PLEASANT. COOPERATIVE. UNLABORED RESPIRATIONS. IN ROOM DOING "BUSY WORK"--FOLDING WASHCLOTHS, ORGANIZING PERSONAL ITEMS ON SHELF, ETC. DENIES PAIN. GOOD APPETITE. STEADY GAIT. WCTM.
--- NOTE | 2019-04-21 17:08 | NUR ---
PER [facility] [place], PATIENT WILL BE GOING THERE ON FRIDAY DUE TO NO PCP AND V.A. WILL NOT COVER HIM. PATIENT REDIRECTABLE. ALERT TO SELF. SOMETIMES MAKES SENSE WHEN TALKING, BUT NOT ALWAYS. IN HALLWAY SITTING IN CHAIR, TALKING TO BAG SORTER. ANNITA.
--- NOTE | 2019-04-22 05:00 | NUR ---
SHIFT SUMMARY PT HAD AN UNEVENTFUL SHIFT AND SLEPT MOST OF THE NIGHT. PT REMAINS PLEASENTLY CONFUSED. VSS. NO COMPLAINTS FROM THE PT. PT REMAINED INDEPENDEDENT. WILL CONTINUE TO MONITOR.
--- NOTE | 2019-04-22 18:07 | NUR ---
SHIFT SUMMARY: NO ACUTE CHANGES TO REPORT THIS SHIFT. PT ALERT; ORIENTED TO SELF. NO C/O PAIN THIS SHIFT. AWAITING PLACEMENT. WCTM.
--- NOTE | 2019-04-23 01:43 | NUR ---
PT REMAINED PLEASANTLY CONFUSED DURING THE SHIFT, ALERT AND ORIENTED TO SELF ONLY. NO COMPLAINTS OF DISCOMFORT AT THIS TIME. WILL CONTINUE TO MONITOR.
--- NOTE | 2019-04-23 18:18 | NUR ---
SHIFT SUMMARY: NO ACUTE CHANGES TO REPORT THIS SHIFT. PT ALERT; ORIENTED TO SELF; PLEASANTLY CONFUSED. INDEPENDENT IN ROOM AND HORNE. NO C/O PAIN THIS SHIFT. NO IV ACCESS. AWAITING PLACEMENT. WCTM.
--- NOTE | 2019-04-24 01:20 | NUR ---
PT EXITS ROOM AND WANDERS INTO OTHER PATIENT ROOM, DEMANDING TO USE BATHROOM. PT BECOMES DEFENSIVE WITH RN REDIRECTION, AND EXITS THE RM WHEN THE OCCUPYING PT YELLS AT HIM. ASSISTED PT TO HIS OWN BR, PLEASANT AND COOPERATIVE AT THIS TIME. WILL CONT TO MONITOR.
--- NOTE | 2019-04-24 06:04 | NUR ---
SHIFT SUMMARY: PT WANDERS AROUND THE HALLS UNTIL ABOUT 2200 TONIGHT. SLEEPS IN BED T/O NIGHT. PT IS REORIENTABLE AND COOPERATIVE, DOES WELL WHEN GIVEN TASKS TO COMPLETE SUCH COLORING, FOLDING, AND COUNTING. PT IS ALERT TO SELF ONLY, NONSENSIBLE. PT IS CONTINENT/INCONTINENT. PT BECOMES VERY CONFUSED WHEN TAKING MEDS TONIGHT AND CANNOT FIGURE OUT THE CONCEPT OF PILLS TO MOUTH. NO OTHER CHANGES TO REPORT. WILL CONT TO MONITOR AND PROVIDE CARE UNTIL PRESUMED BY ONCOMING RN.
--- NOTE | 2019-04-24 17:09 | NUR ---
SHIFT SUMMARY: PT IS ALERT AND ORIENTED TO SELF WITH ONGOING CONFUSION BUT IS EASILY RE-DIRECTED WITH SIMPLE TASKS. PT HAS HAD A GOOD APPETITE TODAY. PT CONTINUES TO AMBULATE AND WANDER ON UNIT AND AT TIMES NEEDS QUEING ABOUT NOT ENETERING OTHER PATIENT ROOMS. PT WAS ASSISTED TO TAKE A SHOWER THIS MORNING. PT IS NOT ABLE TO MAKE HIS NEEDS KNOWN AND NEEDS FREQUENT CHECKS WELL TOTAL ASSIST FOR ALL ADLS.
--- NOTE | 2019-04-24 21:04 | NUR ---
INCREASED AGITATION PT IS INCREASINGLY AITATED TONIGHT. WANDERING HALLS INTO OTHER ROOMS, NOT REORIENTABLE OR DIRECTABLE PT IS BECOMING DEFENSIVE AND COMBATIVE. ADMINISTERED PRN HALDOL, ATIVAN, AND BENADRYL. PT CONTINUES TO BE COMBATIVE TOWARDS STAFF AND NOT FOLLOWING DRECTIONS. CALLED SECURITY IN ROOM TO ASSIST THIS RN AND APPLICATION MANAGER IN APPLYING COY VEST. 4 STAFF REQUIRED TO SAFELY RETURN PT TO . LAKESIDE IN PLACE. WILL CONT TO MONITOR.
--- NOTE | 2019-04-25 06:15 | NUR ---
LATE ENTRY FOR 0540 PT CALLS OUT AND FOUND TO BE HANGING OVER BED WITH COY TIGHTLY WRAPED AROUND LEGS. LEGS HAVE MOTTLED APPEARANCE. UNWRAPPED COY AND INSTRUCTED PT TO STAND UP. ASSESSMENT OF O2 SATS 97% ON RA, CAP REFILL < 3. PT DENIES ANY N/T. MOTTLED APPEARANCE TO LEGS SUBSIDE. WILL CONT TO MONITOR PT.
--- NOTE | 2019-04-25 06:18 | NUR ---
AGITATION EPISODE PT HAS A SECOND EPISODE OF INCREASING AGITATION AND COMBATIVE BEHAVIOR. PT STRIPS OFF CLOTHING AND THROWS THEM AT STAFF, CHALLENGES STAFF, AND IS NOT FOLLOWING DIRECTIONS. 4 STAFF REQUIRED TO RETURN PT TO BED AND PLACE COY. PT RESTING AT THIS TIME.
--- NOTE | 2019-04-25 06:33 | NUR ---
SHIFT SUMMARY PT INCREASINGLY AGITATED AND COMBATIVE TONIGHT, SEE PRIOR NOTES. DUE TO COMBATIVE BEHAVIOR AND INABILITY TO REDIRECT PT, PLACED IN COY VEST RESTRAINT c AID OF 4-5 STAFF MEMBERS. ADMINISETERED PRN HALDOL, BENADRYL, AND ATIVAN WHICH HAD LITTLE EFFECT, PT DID NOT REST TONIGHT AND WAS FREQUENTLY CALLING OUT AND UNTYING SELF FROM COY. NO OTHER CHANGES TO REPORT, WILL CONT TO MONITOR AND PROVIDE CARE UNTIL PRESUMED BY ONCOMING RN.
--- NOTE | 2019-04-25 08:10 | NUR ---
RECEIVED IN REPORT THIS AM THAT PT WAS AGITATED AND COMBATIVE LAST NIGHT. UPON ASSESSMENT THIS MORNING PT IS PLEASANTLY CONFUSED AND EASILY REDIRECTABLE. THIS NURSE ASSISTED HIM TO THE TOILET AND WITH CLEAN CLOTHES, HE BRUSHED HIS TEETH AND HAIR AND IS NOW SITTING AND COLORING PICTURES IN THE HORNE AWAITING BREAKFAST.
--- NOTE | 2019-04-25 16:50 | NUR ---
SHIFT SUMMARY: PT HAS BEEN A/O AT BASELINE THIS SHIFT AND PLEASANTLY CONFUSED WITH NO C/O PAIN. PT HAS BEEN EASILY REDIRECTED WITH ACTIVITIES AND ENJOYS SITTING BY THE WINDOW AND WATCHING THE OUTSIDE ACTIVITIES AND WATER FALL. PT IS COOPERATIVE WITH CARE AND EATS WELL WITH MINIMAL ENCOURAGEMENT. PT IS DRAWING IN THE HORNE.
--- NOTE | 2019-04-25 18:13 | NUR ---
PT APPEARS MORE AGGITATED WITH SYMPTOMS OF SUNDOWNING. MORE IS PACING AND NOT EASILY RE-DIRECTED. ATIVAN WAS GIVEN ORDERED AND PT IS CURRENTLY RE-ARRANGING ITEMS IN HIS ROOM.
--- NOTE | 2019-04-25 22:02 | NUR ---
PER REPORT, PT BECAME MORE AGITATED AROUND 1800. PT CONTINUED TO BE INCREASINGLY MORE AGITATED, COMBATIVE, AND NOT REDIRECTABLE. PRN PO ATIVAN ADMINSITERED BY DAYSHIFT RN PROVIDED LITTLE EFFECT. ADMINSITERED PRN BENADRYL AND HALDOL, WELL SCHEDULED HALDOL AT 1945. PT IS NOW FOLLOWING DIRECTIONS AND WATCHNG TV/LAYING QUIETLY IN BED. NO RESTRAINTS APPLIED. WILL CONT TO MONITOR.
--- NOTE | 2019-04-26 04:56 | NUR ---
SHIFT SUMMARY PT VERY AGITATED AND RESTLESS AT BEGINNING OF SHIFT. ADMINISTERED PRN MEDS (BENDARYL, HALDOL) AND SCHEDULED SEROQUEL, AND PT HAS BEEN MORE REDIRECTABLE AND COOPERATIVE WITH STAFF. PT HAS BEEN SLEEPING SINCE 2199, AWAKING FOUR TIMES TO USE THE RESTROOM. PT IS COMBATIVE DURING THESE TIMES AND REQUIRES 2 OR MORE STAFF HOWEVER DOES RETURN TO BED. VSS, REFUSED THIS AM VITALS. WILL CONT TO MONITOR AND PROVIDE CARE UNTIL PRESUMED BY ONCOMING RN.
--- NOTE | 2019-04-26 05:59 | NUR ---
PT AGITATED, CORNERS PHARMACY TEACHER AND RAISES FIST, CHASES THIS RN AND OTHER RN OUT OF ROOM WITH RAISED FIST STATING "GET OFF MY PROPERTY". SECURITY CALLED TO FLOOR TO SAFELY HANDLE PT. 5 STAFF MEMBERS REQUIRED TO RETURN PT TO BED. ADMINISTERED PRN PO HALDOL, BENADRYL, AND ATIVAN. PT NOW RESTING IN BED, KIND AND COOPERATIVE WITH STAFF.
[2019-04-26] MEDS ORDERED: BENADRYL25 MG PO (09:35)
[2019-04-26] MEDS ORDERED: DOCU100 PO (09:36)
[2019-04-26] MEDS ORDERED: HALO5 (09:39)
[2019-04-26] MEDS ORDERED: LORA.5 PO (09:40)
[2019-04-26] MEDS ORDERED: METO50ER PO (09:41)
[2019-04-26] MEDS ORDERED: QUET100 (09:42)
[2019-04-26] MEDS ORDERED: QUET200 (09:44)
[2019-04-26] MEDS ORDERED: B-1100 MG (09:47)
--- NOTE | 2019-04-26 13:27 | NUR ---
PT DCD TO [facility]. REPORT CALLED TO KAM WADE THIS AM. TRANSPORTED VIA [facility]. ALL BELONGINGS SENT WITH PT. PT STABLE UPON DC AND HUGGED AND THANKED THIS NURSE AND TECHNICAL CLERK.
--- NOTE | 2019-06-03 15:04 | NUR ---
LATE ENTRY: PATIENT REMOVED FROM RESTRAINTS ON 04/12/19 AT 09:57.
== END 2019-04-26 13:15 | disposition home or self-care (01) ==
LOC: ER 18:38 → EOR 18:39 → ER 18:39 → MEDS 21:31 → ENPENDDIS 04-26 09:12 → MEDS 04-26 13:15
PROVIDERS: Emergency Medicine; Internal Medicine; ADMIT Internal Medicine
DX: G30.9 Alzheimer's disease, unspecified (principal); F02.81 Dementia in other diseases classified elsewhere, unspecified severity, with behavioral disturbance; F10.27 Alcohol dependence with alcohol-induced persisting dementia; I63.9 Cerebral infarction, unspecified; G92 Toxic encephalopathy; T74.11XA Adult physical abuse, confirmed, initial encounter; E87.6 Hypokalemia; E87.0 Hyperosmolality and hypernatremia; E87.1 Hypo-osmolality and hyponatremia; I10 Essential (primary) hypertension; Z91.018 Allergy to other foods; Z88.4 Allergy status to anesthetic agent; Z87.891 Personal history of nicotine dependence; Z79.899 Other long term (current) drug therapy
CPT/HCPCS: 36415; 80053; 80069; 81003; 84443; 85025; 85027; 96372; 96374; 96376; 99285-25; A9270; G0378; G0480; J1200; J1630; J1650; J2060; J3486; Q0163

== ENCOUNTER 2019-05-26 17:33 | Observation (INO) | payer MEDICARE, BC ==
[~2019-05-26] VITALS: Ht 162.6 cm; Wt 63.5 kg
[~2019-05-26 17:33] MED LIST changes: +B-1100 MG; +BENADRYL25 MG PO; +DOCU100 PO; +HALO5; +LORA.5 PO; +METO50ER PO; +QUET100; +QUET200
[2019-05-26] MEDS ORDERED: DOCU100 PO (17:50)
[2019-05-26] MEDS ORDERED: Prozac40 MG PO (17:50)
[2019-05-26] MEDS ORDERED: QUET100 PO ×2 (17:51)
[2019-05-26] MEDS ORDERED: METO50ER PO (17:51)
[2019-05-26] MEDS ORDERED: RISP1 PO (17:52)
[2019-05-26] MEDS ORDERED: LORA.5 PO (17:53)
[2019-05-26] MEDS ORDERED: ACET325 PO (17:53)
[2019-05-26] MEDS ORDERED: ANTACID PLUS A355 M1 PO (22:57)
[2019-05-26] MEDS ORDERED: BENADRYL25 MG PO (22:58)
[2019-05-26] MEDS ORDERED: BISA10S PR (22:58)
[2019-05-26] MEDS ORDERED: SODIUM PHOSPHATE PR (22:59)
[2019-05-26] MEDS ORDERED: Milk Of Ma400 MG/5 M PO (23:00)
[2019-05-26] MEDS ORDERED: Anti-Diarrheal2 MG PO (23:00)
[2019-05-26] MEDS ORDERED: ONDA4ODT MM (23:01)
[2019-05-26] MEDS ORDERED: Triple Antibio1 EACH TOP (23:02)
--- NOTE | 2019-05-27 03:14 | NUR ---
Shift summary: Pt admitted to room 348 last pm at 2200. Pt very agitated and uncooperative when we transferred him from [facility] to bed. It took five people to transfer him. After getting him in bed, pt would not let us clean him up or get vitals and did not want to stay in bed. Pt up ambulating with 2 person assist. Pt very weak. Very high fall risk and does not want to let people help him with adl's. Recieved order for restraints and zyprexa if needed. Restraints put on. Pt settled down then and was able to get some sleep.
[2019-05-27 05:48] LABS: Hematocrit 32.6 % (37.0-53.0); Mean Corpuscular HGB 32.9 pg (26.0-34.0); Mean Corpuscular HGB Conc 33.7 g/dL (31.5-36.5); Mean Corpuscular Volume 98 fL (80-100); Mean Platelet Volume 10.8 fL (9.1-12.4); Platelet Count 166 K/mm3 (150-400); RDW Coefficient Variation 11.9 % (11.7-14.2); RDW Standard Deviation 42.7 fL (35.1-46.3); Red Blood Cell Count 3.34 M/mm3 (4.30-5.90); White Blood Cell Count 8.32 K/mm3 (4.00-11.30)
[2019-05-27 11:52] LABS: Anion Gap 5 mmol/L (6-16); Blood Urea Nitrogen 13 mg/dL (8-24); CO2, Blood 30 mmol/L (21-32); Calcium, Blood 9.3 mg/dL (8.5-10.1); Chloride, Blood 111 mmol/L (98-108); Creatinine, Blood 0.81 mg/dL (0.60-1.20); Glomerular Filtration Rate >60 (60-); Glucose, Blood 84 mg/dL (70-99); Potassium, Blood 4.2 mmol/L (3.5-5.5); Sodium, Blood 146 mmol/L (136-145)
--- NOTE | 2019-05-27 19:15 | NUR ---
SHIFT SUMMARY PATIENT HAD SOFT WRIST RESTRAINTS AND COY VEST ON ALL SHIFT, NO CIRCULATION CHANGE OR SKIN BREAKDOWN NOTED. PATIENT SLEPT IN, THEN MOVED SELF AROUND BED WHEN AWAKE. PT ACCEPTED PUDDING AND CRUSHED MEDS IN PUDDING, OTHERWISE ALL CARES PATIENT REFUSED. PT CURSING AT STAFF, BALLING FISTS, SENTENCES DO NOT MAKE SENSE. PT WAS INCONTINENT IN BED, ALL BED LINEN AND COY VEST CHANGED.
--- NOTE | 2019-05-28 04:43 | NUR ---
Shift summary: Restraints remain on this am. Pt awoke around 0200 very agitated and trying to get out of bed. Pt needed changing. Security called for standby because restraints were having to be released to changes his clothes. Pt fights less with male security. Pt fell back asleep after getting cleaned up. Was able to get pt to take his meds by crushing them and putting them in custard.
--- NOTE | 2019-05-28 17:39 | NUR ---
SHIFT SUMMARY PATIENT PLEASANTLY CONFUSED IN AM, SLEEPY BUT ATE PART OF HIS BREAKFAST WITH FULL ASSISTANCE. PATIENT GETS VERBALLY AGGRESSIVE WITH TURNING AND CHANGING BRIEF AND BEDDING AND RESISTS CARE. PATIENT DOES NOT ANSWER ORIENTATION QUESTIONS WHEN ASKED, PT ANSWERS "THAT'S WHAT I'D LIKE TO KNOW" WHEN ASKED WHERE HE IS. COY VEST AND SOFT WRIST RESTRAINTS IN PLACE WITH NO S/S OF COMPROMISED SKIN OR CIRCULATION. PT THROWS SHEET AND SWINGS LEGS OVER SIDE OF BED AT TIME. CALLED TO CHECK ON ASSESSMENT BY DR WATERS/PSYCH CONSULT. PSYCH CONSULT RESENT AROUND 1630. 1755 PATIENT SWEARING IN ROOM AND APPEARS TO BE VISUALLY HALLUCINATING, PRN ZYPREXA GIVEN.
--- NOTE | 2019-05-29 03:43 | NUR ---
Shift summary. Pt resting comfortably until around 0200. Pt very agitated and upset with staff trying to change him. I was able to get his seroquel down him around midnight but did not last long. Pt trying to get out of restraints and get out of bed. Pt wants nothing to do with staying in bed. Am monitoring closely and camera in room is on.
--- NOTE | 2019-05-29 19:23 | NUR ---
PT REMAINS IN RESTRAINTS, COY AND SOFT WRIST, WHEN AWAKE HE IS PULLING ON RESTRAINTS, THROWING LEGS OVER AND BETWEEN RAILINGS ATTEMPTING TO GET OUT OF BED. HE IS VERY CONFUSED, NOT COOPERATIVE WITH CARE. SPITTING FOOD AT RN THIS AFTERNOON. NO ACUTE CHANGES NOTED, WILL CONTINUE TO MONITOR AND REPORT TO ONCOMING RN
--- NOTE | 2019-05-30 05:55 | NUR ---
SHIFT SUMMARY PT STILL REQUIRING SOFT WRIST RESTRAINTS AND COY VEST. HE WAS ABLE TO SWALLOW HIS PILLS CRUSHED IN PUDDING AND WENT TO SLEEP AFTER THAT. HE WAS ABLE TO SLEEP THROUGH REST OF NIGHT. INCONT OF URINE. SPEECH NOT UNDERSTANDABLE. DOES GET AGITATED WHEN CHANGING AND TURNING HIM. BED ALARM IN USE.
--- NOTE | 2019-05-30 11:30 | NUR ---
PAL CARE VISIT. NOTIFIED THAT HAD ARRIVED WITH PAPERWORK FOR ME. MET WITH , WHO BROUGHT IN HER ORIGINAL OF PT'S AD/POA FOR HEALTHCARE, COMPLETED APPROX 10 YEARS AGO. COPY MADE AND FAXED TO [employer], ALONG WITH PT'S NEWLY COMPLETED POLST. DOCUMENTED YESTERDAY, PT NAMED HIS OF 55 YEARS HIS POA FOR HEALTHCARE AND HIS SON, [place] AN ALTERNATE. THIS WAS REFLECTED ON PT'S POLST ALSO. PT DID NOT WANT ANY ARTIFICIAL PROLONGATION OF HIS LIFE, PER AD. HIS WISHES THEN AND HIS 'S CURRENT STATED WISHES ARE NOW REFLECTED IN HIS DNR/DNI ORDERS AND POLST. PT IS SITTING UP IN BED. HE IS TALKING NONSTOP, NONSENSICAL. ORIENTED X 1. HE MUMBLES AND CURSES UNDER HIS BREATH A LOT BUT IS USING A NORMAL VOLUME VOICE WITH SPEECH. PT APPEARS ANXIOUS BUT NOT AGITATED. HE IS SHAKING HIS HEAD AND EXPRESSES MUCH FRUSTRATION, "THEY ARE STUPID. I DON'T KNOW WHAT THEY ARE TALKING ABOUT. RN REPORTED THAT HE GOT MORE SLEEP LAST NIGHT. HE CANNOT TELL ME IF HE IS HURTING. HE HAS SKIN BREAKDOWN AND A LOOSE DRESSING ON HIS LEFT UPPER ARM. REQUESTS THAT THE DRESSING BE CHANGED TO PREVENT THE DRAINAGE OOZING. RN INFORMED AND SHE WILL CHANGE DRESSING SHORTLY. LOOKS EXHAUSTED. SHE SPOKE WITH MARCELA ON FRIDAY BUT HAS NOT SPOKEN TO STAFF FURTHER ABOUT [facility]. I ENCOURAGED HER TO VISIT SOME MEMORY CARE FACILITIES TO HELP WITH CHOOSING ONE FOR HER . SHE VERBALIZED THAT SHE WOULD TRY TO VISIT [facility] TODAY. INFORMED THAT D/C PLANNERS/CARE MGMT STAFF WOULD BE IN CONTACT THIS WEEK TO ASSIST HER WITH DC PLANNING.
--- NOTE | 2019-05-30 18:47 | NUR ---
PT REMAINS NON COOPERATIVE, CURSING AND ATTEMPTING TO GET OOB. PT REMAINS IN RESTRAINTS. HIS WAS HERE FOR A SHORT TIME THIS MORNING, SHE VISITED WITH PT AND MARQUITA BUTT FROM PALLIATIVE CARE, NO ACUTE CHANGES NOTED THIS SHIFT, WILL CONTINUE TO MONITOR AND REPORT TO ONCOMING RN
--- NOTE | 2019-05-31 06:15 | NUR ---
SHIFT SUMMARY PT IN SOFT WRIST AND COY VEST RESTRAIINTS. CONTINUES TO BE AGITATED AND TRYING TO GET OOB. HE WAS ABLE TO TAKE PILLS CRUSHED IN PUDDING AND WAS ABLE TO SLEEP AFTER THAT. INCONT OF URINE. BED ALARM IN USE.
--- NOTE | 2019-05-31 08:53 | NUR ---
PATIENT DID NOT EAT BREAKFAST THIS SHIFT. PATIENT DECLINED TRAY WHEN BROUGHT INTO ROOM. STATED, "NO WHY SHOULD I" WHEN TRAY WAS BRPUGHT IN. I OFFERED TO HELP AND ASSIST AND HE STILL DECLINED. RN WAS NOTIFIED.
--- NOTE | 2019-05-31 18:25 | NUR ---
HE HAS EATEN WELL WHEN HE GETS FINGER FOOD. HE HAS MOSTLY BEEN PLEASANT. DACIA CESPEDES CONTINUES D/T HIS INABILITY TO BE RE-DIRECTED AND HIS BALANCE IS POOR.
--- NOTE | 2019-05-31 19:20 | NUR ---
ASSUMED CARE OF THE PATIENT. IV INFUSING WIHT NO PROBLEMS, WOUND VAC INTACT AND AT 125MMGH, NO LEAKAGE. DRESSINGS ON OTHER LEG INTACT. BOTH LEGS ARE ELEVATED. SHE IS PLEASANT AND COOPERATIVE. ENCOURAGED TO USE CALL LIGHT WHEN NEED ANYTHING. ASKED FOR CRACKERS, WILL GIVE. ASSESSMENT COMPLETED SEE CHART. CALL LIGHT IN REACH.
--- NOTE | 2019-05-31 19:20 | NUR ---
ASSUMED CARE OF THE PATIENT: PATIENT SITTING IN CHAIR WITH POSI VEST IN PLACE. TRYING TO GET UP, TALKING INCORHERENTLY. CONFUSED, HAS TURNED ON OXYGEN ON THE CORRAL AND UNPLUGGED ALL DEVICES. MOVED AWAY FROM THE WALL, HE ALSO HAD WATER RUNNING, TURNED IT OFF, HE THROW AWAY HIS ELIU PAD AND PULLED EVERYTHING OFF THE TABLE ONTO THE FLOOR. THIS WAS CLEANED UP AND TABLE MOVED AWAY, REMOVED TRASH FROM HIM WELL. ASSESSMENT COMPLETED, HE DOES NOT FOLLOW DIRECTION, REORIENTED. CALL LIGHT IN REACH.
--- NOTE | 2019-06-01 05:27 | NUR ---
SHIFT SUMMARY: PATIENT HAS BEEN MONITORED THROUGHOUT THE NIGHT WITH A POSI VEST IN PLACE. AT BEGINNING OF THE SHIFT HE WAS VERY RESTLESS, CUSSING, YELLING, AND PULLING AGAINST HIS RESTRAINTS. HE HAD TURNED ON THE OXYGEN, SINK, THROWN ALL THE TABLE THINGS ON THE FLOOR AND WAS ABOUT READY TO GET INTO THE TRASH. ONCE MEDS WERE GIVEN, PLACED HIM BACK IN BED. HE FELL ASLEEP AND HAS SLEPT WELL THROUGHOUT THE NIGHT. NO ACUTE CHANGES OR CONCERNS WERE TO NOTE, WILL REPORT TO DAY SHIFT RN.
--- NOTE | 2019-06-01 13:36 | NUR ---
HE HAS BEEN SITTING ON THE SIDE OF THE BED ALL DAY GAZING OUT THE WINDOW, EATING AND DRINKING. HE REMAINS COMPLETELY CONFUSED WITH NONSENSICAL CONVERSATION. HE HAS BEEN CALM. WILL AMBULATE HIM THIS AFTERNOON. COY PEDERSON IS ON D/T HIM BEING A FALL RISK AND HAVING NO UNDERSTANDING OF THAT OR HOW TO ASK FOR ASSIST.
--- NOTE | 2019-06-01 14:48 | NUR ---
PATIENTS ATTENDD WERE CHECKED AND THEY WERE CKEAN AND DRY. THEY WERE CHANGED PATIENT WAS REPOSITIONED AND PUT TO BED.
--- NOTE | 2019-06-01 16:13 | NUR ---
HAD A NAP. COY PEDERSON ON AL DAY. AWAKE AND PLEASANT. ATE A SHEA PUDDING. HE HAD TO BE SHOWN HOW TO EAT IT WITH A SPOON.
--- NOTE | 2019-06-01 17:27 | NUR ---
HE HAS REMAINED IN THE AMVONET COY ALL DAY FOR FALL PRECAUTIONS. HE HAS SEVERE DEMENTIA. HE HAS BEEN COOPERATIVE.
--- NOTE | 2019-06-02 04:10 | NUR ---
SUMMARY: PT CONT'S TO BE CONFUSED EXCEPT TO SELF W/WORD SALAD AND MOSTLY NONSENSICAL RESPONSES TO Q'S. HE REMAINS IN A COY VEST D/T FALL RISK, IMPULSIVITY AND CONFUSION. HE IS VERY FIGITY AND MAKES ATTEMPTS OOB OR CHAIR BY SELF WHEN AWAKE BUT DOESN'T HAVE STRENGTH TO STAND INDEPENDENTLY. HE SLEPT MAJORITY OF SHIFT THOUGH AND SHOWED NO S/S PAIN/DISTRESS. PT WAS ASSISTED W/ REPOSISTIONING BUT IS VERY FIGITY SO MOVED SELF IN BED OFTEN. HE WAS PLEASANT AND COOPERATIVE W/CARE THIS SHIFT AND TOOK CRUSHED PILLS W/O DIFFICULTY IN PUDDING. ATTENDS CHANGED PRN FOR INCONTINENCE. NO ACUTE CHANGES, VSS AND AFEBRILE. WCTM AND REPORT TO DAY RN.
--- NOTE | 2019-06-02 18:45 | NUR ---
SHIFT SUMMARY COOPERATIVE AND CALM TODAY. COY IN PLACE. EATING WELL. TO VISIT ([employer] COMPLETED 2 DAYS AGO). IMPULSIVE AT TIMES. 1-2 PERSON ASSIST. TAKES PILLS IN VANILLA PUDDING CRUSHED. AWAITING POSSIBLE PLACEMENT AT [facility]. KAM COOLEYRETAIL FURNITURE SALES ASSISTING TODAY.
--- NOTE | 2019-06-03 04:32 | NUR ---
SHIFT SUMMARY: 79 Y/O MALE HAD VERY RESTLESS SHIFT ALL NIGHT WITH MULTIPLE ATTEMPTS TO GET INTO BED WITH PATIENT THEN CLIMBING OUT, PT SPEND MAJORITY OF NIGHT IN BEDSIDE CHAIR WITH DISORGANIZED THOUGHT PROCESS NOTED WHILE FOLDING TOWELS AND BLANKETS OVER AND OVER, INCONTINENT BOWEL AND BLADDER, DENIES PAIN OR NAUSEA, COY VEST RESTRAINT MAINTAINED (NEW ORDER OBTAINED AT 0033), CALL LIGHT AT SIDE. PT CONTINUES TO TALK NON-SENSICAL AND CAN OCCASIONALLY BE VERY IMPULSIVE.
--- NOTE | 2019-06-03 06:19 | NUR ---
PT DECLINED OFFER SLEEP IN BED AND PREFERRED TO STAY UP IN CHAIR AFTER CLEANSED UP (INCONTINENT BOWEL/BLADDER). ALERT TO PERSON ONLY, VERY IMPULSIVE WITH BRIEF PERIODS OF ANGER BEHAVIOR DISPLAYED WHICH QUICKLY SUBSIDED WITH DISTRACTION BY THIS NURSE.
--- NOTE | 2019-06-03 07:11 | NUR ---
ASSUMED CARE OF PT- BEDSIDE REPORT COMPLETED WITH NIGHT KAM FRANCE. PER REPORT PT WAS AWAKE ALL NIGHT. PT IS CURRENTLY SITTING IN A CHAIR WITH A CHAIR ALARM IN PLACE THAT IS NOT CONNECTED TO THE SYSTEM. PER REPORT PT IS MOVING THE CHAIR ALL OVER THE ROOM. PT IS IN A COY WHICH WAS REORDERED AT 0033 PER REPORT FROM NIGHT KAM FRANCE, STAFF ATTEMPTED TO GET THE PT TO LAY IN THE BED LAST NIGHT BUT HE WAS UNWILLING TO DO SO. PT APPEARS TO BE MANIC AT THIS TIME. PT HAS NO SHORT OR CARRIER WASHER MEMORY PER REPORT.
--- NOTE | 2019-06-03 19:22 | NUR ---
SHIFT SUMMARY- AFTER THE PT TOOK HIS NAP HE SEEMS MORE PLEASENT AND CALM. PT SITTING UP IN BED WITH HIS DINNER TRAY, ALERT ONLY TO SELF. COY VEST STILL IN PLACE D/T PT HIGH FALL RISK. NIGHT RN AWARE ORDER EXPIRES AT 0033. PT WAS EVALUATED FOR POSSIBLE PLACEMENT IN [facility] TODAY. POSSIBLE DC THERE AT THE TIME OF DISCHARGE.
--- NOTE | 2019-06-04 02:24 | NUR ---
PT FINALLY AGREED TO LAYING DOWN IN BED AFTER REFUSING MULTIPLE OFFERS FROM STAFF, COY PEDERSON REAPPLIED.
--- NOTE | 2019-06-04 03:47 | NUR ---
SHIFT SUMMARY: 79 Y/O MALE HAD RESTLESS SHIFT FIRST 1/2 SHIFT WITH DECLINING ALL OFFERS TO GO BED FROM NURSING STAFF, COY VEST KEPT APPLIED FOR SAFETY PATIENT OCCASIONALLY VERY IMPULSIVE AND CAN BECOME AGGRESSIVE WITH NO REASON AT TIMES NOTED TO STAFF AND UNABLE TO SAFETY AMBULATE WITHOUT ASSIST 100% OF TIME, PT TOOK ALL MEDS CRUSHED AND PLACED IN PUDDING, THOUGHOUT PROCESS DISORGANIZED WITH POOR RECENT/PAST MEMORY RECALL NOTED, RESTED QUIETLY ENTIRE LAST 5 HOURS SHIFT IN BED, BED ALARM APPLIED, BED LOW POSITION, CALL LIGHT AT SIDE.
--- NOTE | 2019-06-04 07:56 | NUR ---
ASSUMED CARE OF PT- PER REPORT FROM NIGHT KAM FRANCE PT WENT TO BED AROUND 0200. PT WOKE AND STOOD WITH STAFF AT SHIFT CHANGE, REFUSED TO GO TO THE BATHROOM AND REFUSED TO GO TO THE CHAIR, DID NOT WANT TO GO BACK TO BED. WENT IN AND ASSESSED PT, HE IS VERY CONFUSED THIS MORNING AND STILL VERY SLEEPY. SPOKE TO HIM ABOUT TAKING A SHOWER TODAY, PT WAS AGREEABLE TO THIS. SUGGESTED HE DO THIS RIGHT NOW AND PT STATED "NO, NOT NOW IM TOO TIRED." OFFERED TO HELP HIM BACK TO BED AND HE AGREED. PT CURRENTLY SLEEPING, ASKED TRACK SERVICE WORKER TO WAIT ON MORNING VITALS THE PT IS SLEEPING AT THIS TIME.
--- NOTE | 2019-06-04 18:33 | NUR ---
SHIFT SUMMARY- PT ALERT AND HAS AN AFINITY FOR ROOTBEER FLOATS. PT HAD TWO LARGE/EXTRA LARGE BMS BACK TO BACK. PT STATED HE FEELS A LITTLE BETTER AFTER THAT. STOOL WAS LIGHT BROWN AND FORMED. PT BOTTOM IS RED AND A LITTLE RASHY, CLEANED THOROUGHLY AND PLACED PINK CREAM IN THE FOLD OF THE CHEEKS, ON THE RIGHT SIDE THERE IS A SMALL RAW AREA THE SIZE OF A ANGEL.
--- NOTE | 2019-06-05 04:16 | NUR ---
SHIFT SUMMARY: 79 Y/O MALE RESTED COMFORTABLY ALL SHIFT, DENIES PAIN OR NAUSEA, ALERT AND ORIENTED X 1 AND REQUIRES 100% ASSISTANCE WITH ALL ADLS AND REDIRECTIONS REQUIRED PATIENT IS VERY IMPULSIVE AT TIMES, PTS BALANCE VERY POOR, COY VEST RESTRAINT MAINTAINED, PT HAS POOR SHORT/FLIGHT INFORMATION EXPEDITER MEMORY RECALL NOTED, PT RESTED COMFORTABLY LAST 1/2 SHIFT IN BED, BED ALARM APPLIED, BED LOW POSITION, CALL LIGHT AT SIDE.
--- NOTE | 2019-06-05 18:40 | NUR ---
NO ACUTE CHANGES THIS SHIFT. VSS, ON RA. REMAINS IN VEST RESTRAINTS DUE TO FALL RISK AND CONFUSION. PATIENT UP IN CHAIR FOR MOST OF THE DAY. INCONTINENT OF URINE. SKIN INTACT. AWAITING PLACEMENT AT [facility]. AT BEDSIDE FOR A SHIRT TIME TODAY. PATIENT IS VERY PLEASANTLY CONFUSED AND COOPERATIVE WITH CARE. DENIES ANY PAIN OR DISCOMFORT TODAY.
--- NOTE | 2019-06-06 04:30 | NUR ---
SHIFT SUMMARY: PT ALERT TO SELF WITH NONSENSICAL SPEECH. AGITATED AT TIMES, HOWEVER PT COOPERATIVE WITH CARE. TRANSFER FROM CHAIR TO BED WITH 1-2 ASSIST USING STAND/PIVOT. INCONTINENT OF URINE AND STOOL. TAKING MEDS CRUSHED IN VANILLA PUDDING. COY REMAINS IN PLACE. ORDER RENEWED ON 06/05/19 AT 2310. 2+ PITTING EDEMA TO BILATERAL FEET NOTED. PT NOW LAYING IN BED WITH BILATERAL LEGS ELEVATED ON PILLOWS. PT AWAKE THROUGHOUT SHIFT. MUMBLING TO SELF AND SORTING THROUGH MAGAZINES/NEWSPAPERS. BED ALARM ON FOR SAFETY.
--- NOTE | 2019-06-07 04:44 | NUR ---
SHIFT SUMMARY: NO ACUTE CHANGES OVERNIGHT. PT ALERT TO SELF. CONFUSED AND WONDERING WHERE HIS SHUN IS. APPEARS ANGRY THAT IS NOT AT BEDSIDE. INTERMITTENTLY AGITATED AT STAFF, HOWEVER PT REMAINS COOPERATIVE WITH CARE. INCONTINENT OF URINE AND STOOL. 2 ASSIST FOR ALL TRANSFERS. TAKING PILLS CRUSHED IN VANILLA PUDDING. SITTING IN CHAIR FOR PART OF SHIFT. PT ENCOURAGED TO LAY IN BED AND MAINTAIN FEET ELEVATED D/T PITTING EDEMA TO FEET. PT CURRENTLY RESTING IN BED.
--- NOTE | 2019-06-07 16:31 | NUR ---
SHIFT SUMMARY PATIENT HAS BEEN AGGITATED ASKING FOR HIS . ABLE TO REDIRECT. HE WAS PUTTING HIS LUNCH DOWN HIS PANTS. UNABLE TO STATE WHY. CLEANED PATIENT BRIEF AND PLACED BACK INTO BED. PATIENT UNABLE TO FOLLOW DIRECTIONS FOR GETTING BACK TO BED. DIFFICULT TO REDIRECT. QUICKLY BECAME AGGITATED WITH BEING IN BED. PLACED BACK IN CHAIR. PATIENT IS CURRENTLY SITTING IN CHAIR. NO ACUTE ISSUES NOTED.
--- NOTE | 2019-06-08 06:59 | NUR ---
remains in restraints, still confused as to reality and is compulsive, no IV, room air, will share bsr with returning day shift
--- NOTE | 2019-06-08 17:28 | NUR ---
SHIFT SUMMARY PATIENT HAS HAD NO ACUTE CHANGES. CONTINUES TO BE IMPULSIVE. CURRENTLY IN THE CHAIR.
--- NOTE | 2019-06-09 07:11 | NUR ---
remains volitile emotionally, remains in restraints, call light in reach, rm air, no IV, bsr shared with returning nurse
--- NOTE | 2019-06-10 06:13 | NUR ---
SHIFT SUMMARY PT AGITATED MUCH OF THE SHIFT. TAKING 4 STAFF MEMBERS TO GET HIM BACK IN TO BED AFTER ATTEMPTING TO TRANSFER FROM CHAIR TO BED. IM ZYPREXA GIVEN. PT CALMED SOMEWHAT BUT REMAINED AWAKE MUCH OF THE NIGHT SITTING UP IN BED WITH COY IN PLACE, FINALLY FALLING ASLEEP APPROX 0400. PT INCONTINENT. ATTENDS IN PLACE. DENIED ANY PAIN. COY VEST ORDER RENEWED THIS AM AT 0316. VSS. OTHERWISE NO ACUTE CHANGES. WILL CONTINUE TO MONITOR AND REPORT TO DAY RN.
--- NOTE | 2019-06-10 12:07 | NUR ---
PT DISCHARGED PT HAS DEMENTIA, THE PTS DC INSTRUCTIONS WERE FAXED AND SENT TO [facility] AND SENT WITH THE PT, THE PT IS ALERT, PLEASANTLY CONFUSED, COOPERATIVE AND NOT AGITATED AT THE TIME OF DC, THE PT WAS TRANSFERED VIA WHEELCHAIR ACCOMPANIED BY [employer]
== END 2019-06-10 12:05 | disposition home or self-care (01) ==
LOC: ER 17:33 → ERHOLD 17:34 → MEDS 17:34 → ENPENDDIS 06-09 12:36 → MEDS 06-10 12:05
PROVIDERS: Internal Medicine; ADMIT Hospitalist
DX: R45.1 Restlessness and agitation (principal); F10.97 Alcohol use, unspecified with alcohol-induced persisting dementia; I10 Essential (primary) hypertension; Z87.891 Personal history of nicotine dependence; Z79.899 Other long term (current) drug therapy; Z88.4 Allergy status to anesthetic agent; Z79.01 Long term (current) use of anticoagulants
CPT/HCPCS: 36415; 80048; 85027; 96372; 99284; A9270; G0378; J1650

== ENCOUNTER → 2019-06-22 | Outpatient (CLI) | payer MEDICARE, BC ==
[~2019-06-22] MED LIST changes: +ACET325 PO; +ANTACID PLUS A355 M1 PO; +Anti-Diarrheal2 MG PO; +BISA10S PR; +Milk Of Ma400 MG/5 M PO; +ONDA4ODT MM; +Prozac40 MG PO; +QUET100 PO; +RISP1 PO; +SODIUM PHOSPHATE PR; +Triple Antibio1 EACH TOP
[2019-06-23 10:37] LABS: Source, Urine Clean Catch
[2019-06-23 10:44] LABS: Bilirubin, Urine Neg (Neg); Blood, Urine Neg (Neg); Glucose Qualitative, Urine Neg (Neg); Ketones, Urine Neg (Neg); Leukocyte Esterase, Urine Neg (Neg); Nitrite, Urine Neg (Neg); Protein, Urine Neg (Neg); Specific Gravity, Urine 1.015 (1.003-1.022); Urobilinogen, Urine NORM (Normal)
[2019-06-23 10:48] LABS: Appearance, Urine Clear (Clear); Color, Urine Yellow (P-Yellow)
== END | disposition home or self-care (01) ==
LOC: LAB SHORT 16:30 → LAB 16:30
PROVIDERS: Family Medicine
DX: N39.0 Urinary tract infection, site not specified (principal)
CPT/HCPCS: 81003

== ENCOUNTER 2019-11-02 00:29 | Emergency (ER) | payer MEDICARE, BC ==
[~2019-11-02] VITALS: Ht 175.3 cm; Wt 59.0 kg
[2019-11-02] MEDS ORDERED: DIVA125EC PO (00:37)
[2019-11-02] MEDS ORDERED: GAVILAX8.5 GM PO (00:38)
[2019-11-02] MEDS ORDERED: MELA3 PO (00:38)
== END 2019-11-02 02:05 | disposition home or self-care (01) ==
LOC: ER 00:29
DX: S00.03XA Contusion of scalp, initial encounter (principal); W18.30XA Fall on same level, unspecified, initial encounter; Z88.6 Allergy status to analgesic agent; Z91.013 Allergy to seafood; Z79.899 Other long term (current) drug therapy; F03.90 Unspecified dementia, unspecified severity, without behavioral disturbance, psychotic disturbance, mood disturbance, and anxiety; Z87.891 Personal history of nicotine dependence
CPT/HCPCS: 70450; 72125; 99284-25

== ENCOUNTER → 2019-12-14 | Outpatient (CLI) | payer MEDICARE, BC ==
[~2019-12-14] MED LIST changes: +DIVA125EC PO; +GAVILAX8.5 GM PO; +MELA3 PO
[2019-12-15 11:22] LABS: Blood, Urine 1+ (Neg); Glucose Qualitative, Urine Neg (Neg); Ketones, Urine 1+ (Neg); Leukocyte Esterase, Urine 2+ (Neg); Nitrite, Urine Neg (Neg); Protein, Urine 2+ (Neg); Specific Gravity, Urine 1.005 (1.003-1.022); Urobilinogen, Urine 2+ (Normal)
[2019-12-15 11:42] LABS: Appearance, Urine Hazy (Clear); Bilirubin, Urine 1+ (Neg); Color, Urine Amber (P-Yellow)
[2019-12-15 11:43] LABS: Amorphous Light (0-Heavy); Bacteria Many /hpf; Red Blood Cells, Urine 0-2 /hpf (0-2); Squamous Epithelial Cells Not Seen /hpf (Few)
== END | disposition home or self-care (01) ==
LOC: LAB SHORT 11:50 → LAB 11:50
PROVIDERS: Family Medicine
DX: N39.0 Urinary tract infection, site not specified (principal)
CPT/HCPCS: 81001; 87086

== ENCOUNTER → 2020-01-21 | Outpatient (CLI) | payer MEDICARE, BC | END | disposition home or self-care (01) | LOC: LAB 18:27 → LAB SHORT 18:27 | DX: A49.9 Bacterial infection, unspecified (principal); T81.49XA Infection following a procedure, other surgical site, initial encounter | CPT/HCPCS: 87070; 87075; 87205 ==

== ENCOUNTER → 2020-02-16 | Outpatient (CLI) | payer MEDICARE, BC ==
[2020-02-16 19:01] LABS: BASOPHILS ABSOLUTE AUTO 0.06 K/mm3 (0.00-0.23); BASOPHILS PERCENT AUTO 0 % (0-2); EOSINOPHILS ABSOLUTE AUTO 0.07 K/mm3 (0.00-0.68); EOSINOPHILS PERCENT AUTO 0 % (0-6); Hematocrit 27.9 % (37.0-53.0); Hemoglobin 8.4 g/dL (13.5-17.5); IMMATURE GRAN ABSOLUTE AUTO 0.07 K/mm3 (0.00-0.10); IMMATURE GRAN PERCENT AUTO 0 % (0-1); LYMPHOCYTES ABSOLUTE AUTO 1.26 K/mm3 (0.84-5.20); LYMPHOCYTES PERCENT AUTO 8 % (21-46); MONOCYTES ABSOLUTE AUTO 1.31 K/mm3 (0.16-1.47); MONOCYTES PERCENT AUTO 8 % (4-13); Mean Corpuscular HGB 31.7 pg (26.0-34.0); Mean Corpuscular HGB Conc 30.1 g/dL (31.5-36.5); Mean Corpuscular Volume 105 fL (80-100); Mean Platelet Volume 11.5 fL (9.1-12.4); NEUTROPHILS PERCENT AUTO 83 % (41-73); Platelet Count 396 K/mm3 (150-400); RDW Coefficient Variation 14.5 % (11.7-14.2); RDW Standard Deviation 56.1 fL (35.1-46.3); Red Blood Cell Count 2.65 M/mm3 (4.30-5.90); White Blood Cell Count 16.27 K/mm3 (4.00-11.30)
[2020-02-16 19:42] LABS: Alanine Aminotransfer (ALT/SGP 16 U/L (12-78); Albumin, Blood 2.1 g/dL (3.4-5.0); Albumin/Globulin Ratio 0.5 (0.8-1.8); Alk Phos 123 U/L (50-136); Anion Gap 8 mmol/L (6-16); Aspartate Aminotrans (AST/SGOT 13 U/L (12-37); Bilirubin, Total 0.3 mg/dL (0.1-1.0); Blood Urea Nitrogen 19 mg/dL (8-24); Bun/Creatinine Ratio 29.1 (12.0-20.0); CO2, Blood 26 mmol/L (21-32); Chloride, Blood 109 mmol/L (98-108); Creatinine, Blood 0.65 mg/dL (0.60-1.20); Globulin, Blood 3.9 g/dL (2.2-4.0); Glomerular Filtration Rate >60 (60-); Glucose, Blood 130 mg/dL (70-99); Potassium, Blood 3.9 mmol/L (3.5-5.5); Sodium, Blood 143 mmol/L (136-145)
== END | disposition home or self-care (01) ==
LOC: LAB SHORT 14:15 → LAB 14:15
PROVIDERS: Family Medicine
DX: G30.9 Alzheimer's disease, unspecified (principal); I10 Essential (primary) hypertension
CPT/HCPCS: 80053; 85025